=== PATIENT | female | born 1960 | race Caucasian/White ===

== ENCOUNTER → 2016-11-07 | Day surgery (SDC) | payer OTHER ==
[2007-07-05 08:20] VITALS: BP 139/80
[~2016-11-07] MED LIST: BACTRIM DS 8001 TAB PO; CIPRO500 MG PO; CLINDAMYCIN HC150 M1 PO; FLUOXETINE HYDR20 M1 PO; KEFLEX500 MG PO; PERCOCET 325 MG1 TA2 PO; PERCOCET 5-3251 EACH PO; PREVACID 30MG30 MG PO; TYLENOL XSTR500 MG PO
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
== END ==
LOC: STS 03:34
DX: S52.531A Colles' fracture of right radius, initial encounter for closed fracture (principal); W19.XXXA Unspecified fall, initial encounter; K21.9 Gastro-esophageal reflux disease without esophagitis; E66.9 Obesity, unspecified; Z68.41 Body mass index [BMI] 40.0-44.9, adult
CPT/HCPCS: C1713; J0131; J0690; J1100; J2250; J2405

== ENCOUNTER → 2017-01-23 | Day surgery (SDC) | payer OTHER ==
[~2017-01-23] VITALS: Ht 162.6 cm; Wt 120.2 kg
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
== END ==
LOC: STS 04:07
DX: S52.501A Unspecified fracture of the lower end of right radius, initial encounter for closed fracture (principal); S52.201A Unspecified fracture of shaft of right ulna, initial encounter for closed fracture; V89.2XXA Person injured in unspecified motor-vehicle accident, traffic, initial encounter; K21.9 Gastro-esophageal reflux disease without esophagitis
CPT/HCPCS: 87070; 87075; C1713; J0131; J0690; J2250; J2795